=== PATIENT | male | born 1985 | race Caucasian/White ===

== ENCOUNTER 2017-06-24 14:57 | Emergency (ER) | payer OTHER ==
[2017-06-24] MEDS ORDERED: Lidocaine 1% 10 ML MDV INJECT ONE (15:45)
--- NOTE | 2017-06-24 16:45 | EDM.PDOC ---
ED HPI GENERAL MEDICAL PROBLEM - General Chief Complaint: Upper Extremity Injury/Pain Stated Complaint: SMASHED RIGHT THUMB Time Seen by Provider: 06/24/17 15:30 Source of Information: Reports: Patient History Limitations: Reports: No Limitations - History of Present Illness INITIAL COMMENTS - FREE TEXT/NARRATIVE: Patient presents to the E.D. complaing of a crush injury with laceration to the right thumb. 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 Pain is localized. Tetanus status is up to date. Patient denies any pain to the remaining fingers, hand, wrist, and/or forearm. Right Hand Pain Score (Numeric/FACES): 7 - Related Data Allergies Allergy/AdvReac Type Severity Reaction Status Date / Time No Known Allergies Allergy Verified 06/24/17 15:09 Home Meds: Home Meds . [No Known Home Meds] 06/24/17 [History] Past Medical History Endocrine/Metabolic History: Reports: Hypothyroidism - Past Surgical History GI Surgical History: Reports: Other (See Below) Other GI Surgeries/Procedures: hemorhiod surgery Social & Family History - Tobacco Use Smoking Status *Q: Former Smoker Years of Tobacco use: 15 Used Tobacco, but Quit: Yes Month/Year Tobacco Last Used: February Review of Systems - Review of Systems Review Of Systems: ROS reveals no pertinent complaints other than HPI. ED EXAM, GENERAL - Physical Exam Exam: See Below Exam Limited By: No Limitations General Appearance: Alert, WD/WN, No Apparent Distress Nose: Normal Inspection Throat/Mouth: Normal Voice, No Airway Compromise Neck: Normal Inspection, Supple Respiratory/Chest: No Respiratory Distress, No Accessory Muscle Use Cardiovascular: Normal Peripheral Pulses, Regular Rate, Rhythm Peripheral Pulses: 4+: Radial (R) Extremities: Other (Pain with palpation of the right thumb at all joints with decrease ROM noted. Patient has a approximately 2 cm laceration to the dorsal aspect of the right thumb proximal to the mcp. no sensory changes noted. No pain with palpation of the remaining fingers, hand, wrist, and/or forearm. ) Neurological: Alert, Oriented, CN II-XII Intact, Normal Cognition, No Motor/ Sensory Deficits Psychiatric: Normal Affect, Normal Mood Skin Exam: Warm, Dry, Intact ED TRAUMA EXTREMITY PROCEDURES - Laceration/Wound Repair Right Dorsal Finger Lac/Wound Length In cm: 2.1 Appearance: Subcutaneous, Clean Distal NVT: Neuro & Vascular Intact, No Tendon Injury Anesthetic Type: Local Local Anesthesia - Lidocaine (Xylocaine): 1% Plain Local Anesthetic Volume: 4cc Skin Prep: Chlorhexidine (Hibiciens), Saline, Sterile Drape Exploration/Debridement/Repair: Wound Explored, In a Bloodless Field, Explored to Base, No Foreign Material Found Closed With: Sutures Suture Size: 4-0 # of Sutures: 4 Suture Type: Prolene, Interrupted, Simple Drain Placement: No Sterile Dressing Applied: Nurse Tetanus Status Addressed: Yes (Up-to-date per patient.) Complications: No Course - Vital Signs Last Recorded V/S: Last Vital Signs Temp 99.5 F 06/24/17 15:09 Pulse 82 06/24/17 15:09 Resp 18 06/24/17 15:09 BP 144/91 H 06/24/17 15:09 Pulse Ox 97 06/24/17 15:09 - Orders/Labs/Meds Meds: Medications Discontinued Medications Generic Name Dose Route Start Last Admin Trade Name Diana PRN Reason Stop Dose Admin Lidocaine HCl 10 ml 06/24/17 15:45 06/24/17 15:53 Xylocaine 1% INJECT 06/24/17 15:46 10 ml ONETIME ONE Administration - Re-Assessments/Exams Free Text/Narrative Re-Assessment/Exam: Order x-ray of the right thumb and also 1% lidocaine. No fracture noted on x-ray. Reviewed with Dr. Peña. Laceration closed with no complications. Dressing applied per nursing staff. Discharge instructions as documented. Departure - Departure Time of Disposition: 16:41 Disposition: Home, Self-Care 01 Condition: Good Clinical Impression: Laceration of thumb Qualifiers: Encounter type: initial encounter Damage to nail status: without damage Foreign body presence: without foreign body Laterality: right Qualified Code(s) : S61.011A - Laceration without foreign body of right thumb without damage to nail, initial encounter Crushing injury of thumb, right Qualifiers: Encounter type: initial encounter Qualified Code(s): S67.01XA - Crushing injury of right thumb, initial encounter - Discharge Information Instructions: Crush Injury of the Hand, Laceration Care, Adult, Stitches, [place], or Adhesive Wound Closure, [id number] Referrals: PCP,Unknown [Ordering Only Provider] - Forms: ED Department Discharge, ED Return to Work/School Form Additional Instructions: No fracture noted on right thumb x-ray. Final interpretation is pending. Laceration closed with no complications. Cleanse site twice daily with soap and water, pat dry, reapply to triple antiointment, and dressing. Keep area clean and dry. Do not soak wound. Do not perform any heavy lifting until sutures are removed. Sutures come out in 10 days. Please see a primary care provider over at [facility] in [place] to have them removed. May follow with occupational med doc for modification of job duties. Apply ice to affected area 3 times a day, 30 minutes in duration, do not apply ice directly on the skin. Take ibuprofen and tylenol in alternating fashion for pain.
--- NOTE | 2017-06-24 17:28 | CR ---
Right thumb: Three views of the right thumb were obtained. Comparison: No previous thumb exam. Joint spaces are maintained. No fracture, dislocation or other bony abnormality is seen. Impression: 1. No bony abnormality is seen on right thumb exam. Diagnostic code #1
== END 2017-06-24 16:55 | disposition home or self-care (01) ==
LOC: JD.ED 14:57
DX: S67.01XA Crushing injury of right thumb, initial encounter (principal); S61.011A Laceration without foreign body of right thumb without damage to nail, initial encounter; E03.9 Hypothyroidism, unspecified; Z87.891 Personal history of nicotine dependence; W23.1XXA Caught, crushed, jammed, or pinched between stationary objects, initial encounter
CPT/HCPCS: 12001; 73140-26-F5; 73140-F5; 99283; 99284-25

== ENCOUNTER 2024-11-22 12:20 | Emergency (ER) | payer BC ==
[2024-11-22] MEDS ORDERED: Sodium Chloride 0.9% 10 ML Syringe FLUSH PRN (12:26)
[2024-11-22 12:56] LABS: BASOPHILS ABSOLUTE AUTO 0.1 K/mm3 (0.0-0.2); BASOPHILS PERCENT AUTO 0.9 % (0.0-1.0); EOSINOPHILS ABSOLUTE AUTO 0.1 K/mm3 (0.0-0.4); EOSINOPHILS PERCENT AUTO 0.8 % (0.0-6.0); IMMATURE GRAN ABSOLUTE AUTO 0.03 K/mm3 (0.00-0.05); IMMATURE GRAN PERCENT AUTO 0.4 % (0.0-0.4); LYMPHOCYTES ABSOLUTE AUTO 2.3 K/mm3 (1.0-4.8); LYMPHOCYTES PERCENT AUTO 30.2 % (24.0-44.0); MEAN PLATELET VOLUME 9.3 fl (9.4-12.4); MONOCYTES ABSOLUTE AUTO 0.8 K/mm3 (0.0-0.8); MONOCYTES PERCENT AUTO 10.8 % (0.0-8.0); NEUTROPHILS ABSOLUTE AUTO 4.2 K/mm3 (1.8-7.7); NEUTROPHILS PERCENT AUTO 56.9 % (41.0-71.0); NRBC ABSOLUTE 0.00 (0.00-0.02); NRBC PERCENT 0.0 % (0.0-0.2); PLATELET COUNT,PLT 232 K/mm3 (150-400); RED BLOOD CELL COUNT 5.11 M/mm3 (4.52-5.90); WHITE BLOOD CELL COUNT,WBC 7.44 K/mm3 (3.9-11.3)
[2024-11-22 13:27] LABS: A/G RATIO 1.3 (1-2); ALANINE AMINOTRANSFERASE,ALT 37.0 U/L (16-63); ASPARTATE AMNIOTRANSFERASE,AST 21.0 U/L (15-37); BILIRUBIN TOTAL 0.3 mg/dL (0.2-1.0); BLOOD UREA NITROGEN,BUN 19.0 mg/dL (7-18); CARBON DIOXIDE,CO2 21.0 mEq/L (21-32); CHLORIDE,CL 107.0 mEq/L (98-107); CREATININE 0.8 mg/dL (0.7-1.3); EST CRCL DRUG DOSING (CG) 140.1 mL/min; ESTIMATED GFR 115.0 mL/min (>60); GLUCOSE RANDOM 88.0 mg/dL (70-99); POTASSIUM,K 3.9 mEq/L (3.5-5.1); PROTEIN TOTAL,TP 7.5 g/dl (6.4-8.2); SODIUM,NA 141.0 mEq/L (136-145); TROPONIN I HIGH SENSITIVITY 4.0 pg/mL (<=76)
== END 2024-11-22 16:05 | disposition home or self-care (01) ==
LOC: JD.ED 12:20 → MERGE 12:20 → JD.ED 16:05
DX: R07.89 Other chest pain (principal)
CPT/HCPCS: 36415; 71045; 71045-26; 80053; 83735; 83880; 84484; 85025; 93005; 93010; 96374; 99284; 99285-25; J1171